=== PATIENT | male | born 1980 | race Caucasian/White ===

== ENCOUNTER 2024-12-10 08:14 | Inpatient (IN) | payer OTHER ==
[2024-12-10 08:56] VITALS: BMI 26.4
[2024-12-10] MEDS ORDERED: BENZONATATE 200 MG CAPSULE PO PRN (09:26)
[2024-12-10] MEDS ORDERED: LOPERAMIDE HCL 2 MG CAPSULE PO PRN (09:26)
[2024-12-10] MEDS ORDERED: BENZOCAINE/MENTHOL (CHLORASEPTIC ) LOZENGE MM PRN (09:26)
[2024-12-10] MEDS ORDERED: IBUPROFEN 400 MG TABLET (FP) PO PRN (09:26)
[2024-12-10] MEDS ORDERED: ACETAMINOPHEN 325 MG TABLET (FP) PO PRN (09:26)
[2024-12-10] MEDS ORDERED: IBUPROFEN 600 MG TABLET (FP) PO PRN (09:26)
[2024-12-10] MEDS ORDERED: MAG HYDROX/AL HYDROX/SIMETH 30 ML UNIT-DOSE CUP PO PRN (09:26)
[2024-12-10] MEDS ORDERED: guaiFENesin 600 MG TABLET.ER (FP) PO PRN (09:26)
[2024-12-10] MEDS ORDERED: POLYETHYLENE GLYCOL (HEALTHYLAX) 3350 17 GM PACKET PO PRN (09:26)
[2024-12-10] MEDS ORDERED: NALOXONE (NARCAN) HCL 4 MG/0.1 ML SPRAY NS PRN (09:26)
[2024-12-10] MEDS ORDERED: MAGNESIUM HYDROX 2400MG/30ML ORAL SUSPENSION 30 ML CUP PO PRN (09:26)
[2024-12-10] MEDS ORDERED: NICOTINE 14 MG/24 HOURS TOPICAL PATCH TD ONE (10:24)
[2024-12-10] MEDS ORDERED: PRENATAL VITAMINS W/ FOLIC ACID TABLET (FP) PO ONE (10:25)
[2024-12-10] MEDS: NICOTINE 14 MG/24 HOURS TOPICAL PATCH TD SCH (10:26)
[2024-12-10] MEDS: PRENATAL VITAMINS W/ FOLIC ACID TABLET (FP) PO SCH (10:27)
[2024-12-10] MEDS: ALBUTEROL SO4 HFA INHALER IH SCH (10:56)
[2024-12-10] MEDS: BACITRACIN 0.9 GM PACKET TP SCH (13:24)
[2024-12-10] MEDS: TOPIRAMATE 25 MG TABLET PO SCH (13:24)
[2024-12-10] MEDS: DOXYCYCLINE HYCLATE 100 MG TABLET PO SCH (17:43)
[2024-12-10] MEDS: MELATONIN 5 MG TABLETS PO SCH (21:39)
[2024-12-10] MEDS: hydrOXYzine PAMOATE 25 MG CAPSULE (FP) PO PRN (21:39)
[2024-12-10] MEDS: AMOX TR/POT CLAV 500MG/125MG TABLETS (FP) PO SCH (21:39)
[2024-12-10] MEDS: THIAMINE 100 MG TABLET PO SCH (21:39)
[2024-12-11 15:46] LABS: MCHC 30.7 g/dl (32.3-36.5); MEAN CELL VOLUME 93.6 fl (79.0-92.2); MEAN PLT VOLUME 10.0 fl (9.4-12.4); RDW 13.5 % (12.1-15.9)
[2024-12-11 16:02] LABS: CO2 31.0 mmol/L (21-32)
[2024-12-11 16:03] LABS: GLUCOSE,RANDOM 92.0 mg/dL (74-106)
[2024-12-11 16:05] LABS: SGPT/ALT 47.0 U/L (13-61)
[2024-12-11 16:06] LABS: CREATININE 1.1 mg/dL (0.55-1.3); SGOT/AST 23.0 U/L (15-37)
[2024-12-11 16:07] LABS: TOT PROT 6.6 g/dl (6.4-8.2)
[2024-12-11 16:08] LABS: ALK PHOS 90.0 U/L (45-117)
[2024-12-11 16:24] LABS: SYPHILIS W/ RPR CONF NON-REACTIVE (NONREACTIVE)
[2024-12-11 16:56] LABS: HCV DIAGNOSTIC IN-HOUSE W/RFLX REACTIVE (NONREACTIVE)
[2024-12-12 17:56] LABS: URINE APPEARANCE CLEAR; URINE BILIRUBIN NEGATIVE (NEGATIVE); URINE COLOR YELLOW; URINE GLUCOSE (UA) NEGATIVE (NEGATIVE); URINE KETONE NEGATIVE (NEGATIVE); URINE LEUK ESTERASE NEGATIVE (NEGATIVE); URINE NITRITE NEGATIVE (NEGATIVE); URINE PROTEIN NEGATIVE (NEGATIVE); URINE UROBILINOGEN 0.2 mg/dL (0.2-1.0)
[2024-12-13] MEDS: FERROUS SO4 325 MG TABLET (FP) PO SCH (08:03)
[2024-12-13] MEDS: TOPIRAMATE 25 MG TABLET PO SCH (21:22)
[2024-12-18] MEDS: NICOTINE POLACRILEX 4 MG GUM BUC PRN (17:06)
[2024-12-18 18:38] LABS: HIV INTERPRETATION NEGATIVE (NEGATIVE)
[2024-12-19] MEDS: AMOX TR/POT CLAV 500MG/125MG TABLETS (FP) PO SCH (07:50)
[2024-12-21] MEDS: ALBUTEROL SO4 HFA INHALER IH PRN (09:39)
[2024-12-28] MEDS: AMOX TR/POT CLAV 500MG/125MG TABLETS (FP) PO SCH (17:45)
[2024-12-31 05:56] VITALS: RESP 16
[2024-12-31 06:11] VITALS: TEMP 97.7
[2024-12-31 09:21] VITALS: BP 145/75; PULSE 67
== END 2024-12-31 09:25 | disposition home or self-care (01) | DRG 772 ==
LOC: YASAS 08:14 → Y3NR 12:01 → Y3W 12-12 10:34
PROVIDERS: ADMIT Psychiatry & Neurology Pain Medicine; ATTEND Psychiatry & Neurology Pain Medicine
PROC: HZ42ZZZ Group Counseling for Substance Abuse Treatment, Cognitive-Behavioral (ICD-10-PCS; principal; 2024-12-10)
DX: F11.20 Opioid dependence, uncomplicated (principal); F14.20 Cocaine dependence, uncomplicated; F17.210 Nicotine dependence, cigarettes, uncomplicated; E11.9 Type 2 diabetes mellitus without complications; I10 Essential (primary) hypertension; J45.909 Unspecified asthma, uncomplicated; D64.9 Anemia, unspecified
CPT/HCPCS: 0241U-QW; 36415; 71045-TC-FY; 71046-TC-FY; 80053; 80305; 80307; 81003; 82962; 83036; 83735; 84484; 85025; 85027; 86780; 86803; 87389; 87522; 93005; 93010; 99281-25